=== PATIENT | female | born 1960 | race Caucasian/White ===

== ENCOUNTER → 2017-04-19 | Outpatient (CLI) | payer BC ==
--- NOTE | 2017-04-19 13:10 | US ---
RENAL ULTRASOUND History: Chronic UTIs Comparison: 06/04/2016 Technique: Multiple stoner scale and color flow Doppler images of the kidneys were obtained. The ernesto on of the urinary bladder was evaluated as well. Findings: The kidneys are normal in echogenicity. The right kidney measures 10.0 cm. No focal mass, hydronephrosis, or stones identified. The left kidney measures 10.0 cm. No focal mass, hydronephrosis, or stone identified. The region of the urinary bladder is grossly unremarkable. IMPRESSION: 1. Unremarkable evaluation of the kidneys. Reported By:
== END ==
LOC: RAD 11:34
PROVIDERS: ATTEND Specialist
DX: N39.0 Urinary tract infection, site not specified (principal); R39.15 Urgency of urination; R35.0 Frequency of micturition
CPT/HCPCS: 76770